=== PATIENT | female | born 1955 | race Caucasian/White ===

== ENCOUNTER 2021-04-07 07:38 | Outpatient (CLI) | payer OTHER, SELFPAY | END 2021-04-07 07:39 | disposition home or self-care (01) | LOC: ANHAUDIO 07:45 | PROVIDERS: PCP Nurse Practitioner Psychiatric/Mental Health; Visit Provider Otolaryngology | DX: R42 Dizziness and giddiness (principal) | CPT/HCPCS: 92537; 92540; 92546; 92567 ==